=== PATIENT | male | born 1980 | race Caucasian/White ===

== ENCOUNTER 2020-02-02 16:54 | Emergency (ER) | payer OTHER ==
[~2020-02-02] VITALS: Ht 190.5 cm; Wt 104.3 kg
[2020-02-02 16:56] VITALS: BP 146/88
--- NOTE | 2020-02-02 18:41 | NUR ---
Patient eloped from facility. ER MD notified.
== END 2020-02-02 18:41 | disposition left against medical advice (07) ==
LOC: ER 16:59
DX: M79.605 Pain in left leg (principal); Z53.21 Procedure and treatment not carried out due to patient leaving prior to being seen by health care provider

== ENCOUNTER 2021-01-17 17:05 | Emergency (ER) | payer OTHER ==
[~2021-01-17] VITALS: Ht 188 cm; Wt 101.2 kg
--- NOTE | 2021-01-17 17:30 | NUR ---
PT C/O visual hallucination "any monet is trying to kill me", denies SI/HI. admits on using drugs and alcohol. PT A/OX3. TOLERATING R/A WELL WITH NO DISTRESS.
[2021-01-17] MEDS ORDERED: diphenhydrAMINE HCL 50 MG/ML VIAL ONE (17:49)
[2021-01-17] MEDS ORDERED: HALOPERIDOL LACTATE INJ 5 MG/ML VIAL ONE (17:49)
[2021-01-17] MEDS ORDERED: LORAZEPAM INJ 2 MG/ML VIAL ONE (17:50)
[2021-01-17] MEDS ORDERED: LORAZEPAM INJ 2 MG/ML VIAL IM ONE (18:00)
[2021-01-17] MEDS ORDERED: diphenhydrAMINE HCL 50 MG/ML VIAL IM ONE (18:00)
[2021-01-17] MEDS ORDERED: HALOPERIDOL LACTATE INJ 5 MG/ML VIAL IM ONE (18:00)
[2021-01-17 18:28] LABS: BASOPHILS # (AUTO) 0.1 K/uL (0.0-0.2); BASOPHILS % (AUTO) 0.6 % (0.0-2.0); EOSINOPHILS % (AUTO) 0.1 % (0.0-6.0); HEMATOCRIT 42 % (39-51); HEMOGLOBIN 14.2 g/dL (13.5-17.5); LYMPHOCYTES # (AUTO) 2.6 K/uL (0.8-4.8); LYMPHOCYTES % (AUTO) 29.8 % (20.0-44.0); MEAN CORPUSCULAR HGB CONC 34 g/dl (31.0-36.0); MEAN CORPUSCULAR VOLUME 89 fL (80-96); MONOCYTES # (AUTO) 0.5 K/uL (0.1-1.30); MONOCYTES % (AUTO) 5.1 % (2.0-12.0); NEUTROPHILS # (AUTO) 5.7 K/uL (1.8-8.9); NEUTROPHILS % (AUTO) 64.4 % (43.0-81.0); PLATELET COUNT (AUTO) 276 K/uL (150-450); RED BLOOD CELL COUNT(AUTO) 4.75 MIL/uL (4.5-6.0); WHITE BLOOD COUNT (AUTO) 8.9 K/uL (4.3-11.0)
[2021-01-17 18:45] LABS: ALANINE AMINOTRANSFERASE 41 U/L (12-78); ALBUMIN 4.2 g/dL (3.4-5.0); ALCOHOL, BLOOD 241 mg/dL (0-0); ALKALINE PHOSPHATASE 65 U/L (46-116); ASPARTATE AMINOTRANSFERASE 29 U/L (15-37); BILIRUBIN,DIRECT 0.1 mg/dL (0.0-0.2); BILIRUBIN,TOTAL 0.3 mg/dL (0.2-1.0); CALCIUM, SERUM 8.6 mg/dL (8.5-10.1); CARBON DIOXIDE 18 mmol/L (21-32); CHLORIDE 104 mmol/L (98-107); CREATININE 1.5 mg/dL (0.6-1.3); GLUCOSE 113 mg/dL (74-106); POTASSIUM 3.7 mmol/L (3.5-5.1); SODIUM SERUM 138 mmol/L (136-145); TOTAL PROTEIN, SERUM 7.8 g/dL (6.4-8.2); UREA NITROGEN, BLOOD 12 mg/dL (7-18)
--- NOTE | 2021-01-17 19:05 | NUR ---
Patient is resting comfortably in bed with eyes closed. Easily aroused. VSS
[2021-01-17 19:46] LABS: ACETAMINOPHEN < 0 ug/ml (10-30)
--- NOTE | 2021-01-18 00:26 | NUR ---
PT SLEEPING, ATTACHED TO MONITOR AND POX. VSS
--- NOTE | 2021-01-18 03:55 | NUR ---
Patient is resting comfortably in bed with eyes closed. Easily aroused. VSS
--- NOTE | 2021-01-18 06:58 | NUR ---
(LAKSHMI- SISTER) RIDE HOME
--- NOTE | 2021-01-18 10:15 | NUR ---
pt sister bee will picking belt operator the pt around 11am
--- NOTE | 2021-01-18 10:56 | NUR ---
Patient discharged to home in stable condition. Written and verbal after care instructions given to Patient and sister verbalizes understanding of instruction.
[2021-01-18 10:57] VITALS: BP 125/73
--- NOTE | 2021-01-18 11:45 | NUR ---
SS Consult: SS consult requested for this 40 year old [place] male for paranoid delusions and drug abuse. Upon SS consult the pt. is alert & oriented x 4 and makes good eye contact. The pt. appears well-groomed. Pt. has pressured speech. Pt.'s mood is anxious and appears restless. DUSTIN explored pt.'s mental health Hx. Pt. stated he was seeing a therapist and involved in therapy groups with [facility]. However, pt. stated when COVID began, the therapy sessions became "impersonal" and over the computer screen and did not work for him so he stopped being involved. Pt. could not specify and diagnosis but stated he is on a lot of psychotropic medications. SW explored pt.'s drug use. Pt. stated he uses "anything" at times but has umair trying to remain sober. The pt. stated he lives at home [[address] [facility] [address]] with his sister LAKSHMI [phone] and would like to return there upon DC. Pt. stated he struggles with his mental health and is compliant with his medication. Pt. denies current SI/HI and denies current hallucinations. Pt. states he received General relief and his family is his support system. SW provided pt. with mental health resources and addiction resources and encouraged him to seek out counseling and additional support for his mental health as he stated that was once helping him a lot. Pt. is agreeable to plan. Resources provided include: Counseling--Outpatient [facility] [address], [place] [address] (Specializes in in-depth psychotherapy for emotional distress: anxiety, depression, interpersonal conflicts, life transitions, childhood abuse) [facility] [address] [place] [address] (Assist with solving problem marital difficulties, separation & divorce, aging parents, & grief, chronic & terminal illness) [facility] [address] [place] [address] (Deal with loss & grief, anxiety, marital difficulties) Homebound/Mental Health Services [address], [address] [place] [address] (Provide in-home mental services to people who are incapable of leaving their homes) [facility] [address] [place] [address] [facility] [address] [place] [address] Mental Health Services Stella Kendrick [address] [place] [address] Services: Outpatient therapy for children, teens, young adults, adults, older adults, and families; Psychiatric services, medication support Psychiatric Outpatient Services [facility] Partial Hospitalization and Intensive Outpatient Program (Managed Care and [place] Only)[address] [facility] [phone] [facility] Partial Hospitalization and Outpatient [id number] [facility] [address] [place], [place] [phone] [facility] Partial Hospitalization and Outpatient [id number] [place], [place] [phone] [facility] Mental Health Roxana [id number] [facility] [address] [place], [place] [phone] [facility] Partial Hospitalization and Outpatient Olhunmv93320 [place], [phone] Crisis and Hotline Telephone Numbers 24-Hour service unless stated [place] Crisis Hotlines: [facility] Mental Health/Crisis Line........789.725.5954 Suicide Prevention Center (24 Hours).......421.449.4304 Suicide Prevention Crisis Center.......246.956.1660 (24 Hours) Assaults Against Women Hotline.........445.705.4999 (24 Hours -- [facility]) Women and Children Crisis Group Home...........[phone] (24 Hours) Child Abuse Hotline............733.494.7536 ([facility] R[facility] Treatment Center (24 Hours)..........[phone] Alcoholics Anonymous (24 Hours)..........[phone] Cocaine Anonymous (24 Hours)............[phone] Narcotics Anonymous (24 Hours)..........269.416.50[address] [facility] [address], [place] [address] ADDICTION RESOURCES For Drugs and Alcohol [facility] Substance Abuse Helpline(SASH)-[facility] Outpatient treatment, residential treatment, recovery support for youth and adults [facility] www.[facility]ing[facility] Teen programs for drug/alcohol education and support [facility] [place]. Program for adults, sliding scale provides support and education [employer] www.LEHRation.org [place]; Outpatient/residential treatment programs; transition to sober living C[facility]Help www.cri-help.org [place]; Outpatient and residential treatment programs; transition to sober living [facility] Frankie Brandt; Outpatient education and supportive programs for teens and adults [place] [facility] www.oasiswomensrecovery.org [place]; Residential treatment and work program for females only [place] www.[facility] centerCelona Technologiescorner[facility].org [place]: Outpatient/residential treatment program for teens and young adults [facility] www.[facility].org [place] [facility], inpatient, outpatient for adults and youth [facility], [facility]. [facility]; Outpatient programs and referrals to community residential programs. Alcoholics Anonymous -sfv information and meeting and schedules www.aa-intergroup.org Dz-Hwef-Qtokrgt https://al-marsha.org/ [place] support groups for family of alcoholics. Marijuana Anonymous www.madistrict6.org -SFV listing of meetings Narcotics Anonymous www.na.org SOBER LIVING RESOURCES [facility] www.soberhousing.net A non-profit agency that provides resources to recovery and sober living homes throughout [place], [facility] Sober Living Homes: A Work in Progress, [place] [facility] Recovery Advocates, [place] [facility] Womens Sober Living Homes: [facility] x [phone] [place], [place] [facility] Sober Living Homes: [facility]
== END 2021-01-18 10:57 | disposition home or self-care (01) ==
LOC: ER 17:07
DX: F23 Brief psychotic disorder (principal); Z60.2 Problems related to living alone
CPT/HCPCS: 36415; 80048; 80076; 80143; 80320; 85025; 96372 ×2; 99285; J1200; J1630; J2060; G0480